=== PATIENT | female | born 1970 | race Caucasian/White ===

== ENCOUNTER 2021-02-01 16:11 | Outpatient (REF) | payer OTHER, SELFPAY ==
[2021-02-01 22:18] LABS: Calculated LDL 189 mg/dL (<100); Cholesterol 260 mg/dL (<200); HDL Cholesterol 54 mg/dL (40-60); Triglyceride 87 mg/dL (<150)
== END 2021-02-01 16:12 | disposition home or self-care (01) ==
LOC: NCHCN 16:11
PROVIDERS: Visit Provider Nurse Practitioner Community Health
DX: E78.2 Mixed hyperlipidemia (principal)
CPT/HCPCS: 80061

== ENCOUNTER 2021-08-09 18:24 | Outpatient (REF) | payer OTHER, SELFPAY ==
[2021-08-09 21:49] LABS: Absolute Basophil Count 0.04 10^3/uL (0.0-0.2); Absolute Eosinophil Count 0.06 10^3/uL (0.0-0.7); Absolute Lymphocyte Count 1.79 10^3/uL (1.2-3.4); Absolute Monocyte Count 0.29 10^3/uL (0.1-0.8); Absolute Neutrophil Count 2.25 10^3/uL (1.2-6.7); Basophils % 0.9; Eosinophils % 1.4; HCT 40.6 % (36.0-46.0); HGB 13.4 g/dL (11.2-15.7); Lymphocytes % 40.4; MCH 29.8 pg (27.0-33.0); MCV 90.2 fL (80-95); MPV 12.5 fL (8.0-11.0); Monocytes % 6.5; Neutrophils % 50.8; Nucleated RBC 0 %; Platelet Count 224 10^3/uL (130-400); RDW 11.8 % (11.7-14.6); WBC 4.43 10^3/uL (4.4-10.8)
[2021-08-09 22:04] LABS: ALT 22 U/L (14-59); AST 12 U/L (15-37); Albumin 3.8 g/dL (3.4-5.0); Alkaline Phosphatase 51 U/L (46-116); Anion Gap 7.6 mmol/L (3-11); BUN 9 mg/dL (7-18); Bilirubin, Total 0.4 mg/dL (0.2-1.0); CO2 27.4 mmol/L (21.0-32.0); CREATININE 0.6 mg/dL (0.55-1.02); Calcium 8.4 mg/dL (8.5-10.1); Chloride 105 mmol/L (98-107); Glucose 106 mg/dL (74-106); Sodium 140 mmol/L (136-145); Total Protein 6.9 g/dL (6.4-8.2)
== END 2021-08-09 18:25 | disposition home or self-care (01) ==
LOC: LBN 18:24
DX: G35 Multiple sclerosis (principal)
CPT/HCPCS: 80053; 85025

== ENCOUNTER 2021-11-09 16:40 | Outpatient (REF) | payer OTHER, SELFPAY ==
[2021-11-09 20:43] LABS: Abs Immature Grans 0.01 10^3/uL (0.0-0.06); Absolute Basophil Count 0.06 10^3/uL (0.0-0.2); Absolute Eosinophil Count 0.08 10^3/uL (0.0-0.7); Absolute Monocyte Count 0.32 10^3/uL (0.1-0.8); Absolute Neutrophil Count 2.35 10^3/uL (1.2-6.7); Basophils % 1.2; Eosinophils % 1.7; HCT 40.3 % (36.0-46.0); HGB 13.7 g/dL (11.2-15.7); Immature Grans % 0.2; Lymphocytes % 41.5; MCH 30.4 pg (27.0-33.0); MCV 90 fL (80-95); MPV 11.8 fL (8.0-11.0); Monocytes % 6.6; Neutrophils % 48.8; Platelet Count 213 10^3/uL (130-400); RDW 11.8 % (11.7-14.6); RDW-SD 38.5 fL; WBC 4.82 10^3/uL (4.4-10.8)
[2021-11-09 20:59] LABS: Hemoglobin A1C 5.6 % (<5.7)
[2021-11-09 21:00] LABS: ALT 19 U/L (14-59); AST 18 U/L (15-37); Albumin 3.8 g/dL (3.4-5.0); Alkaline Phosphatase 47 U/L (46-116); Anion Gap 3.2 mmol/L (3-11); BUN 9 mg/dL (7-18); Bilirubin, Total 0.3 mg/dL (0.2-1.0); CO2 33.8 mmol/L (21.0-32.0); CREATININE 0.5 mg/dL (0.55-1.02); Calcium 8.7 mg/dL (8.5-10.1); Calculated LDL 156 mg/dL (<100); Chloride 102 mmol/L (98-107); Cholesterol 236 mg/dL (<200); Glucose 107 mg/dL (74-106); HDL Cholesterol 57 mg/dL (40-60); Sodium 139 mmol/L (136-145); Total Protein 7.1 g/dL (6.4-8.2); Triglyceride 118 mg/dL (<150)
== END 2021-11-09 16:41 | disposition home or self-care (01) ==
LOC: NCHCN 16:40
PROVIDERS: Visit Provider Nurse Practitioner Family
DX: E78.2 Mixed hyperlipidemia (principal); G35 Multiple sclerosis; R79.89 Other specified abnormal findings of blood chemistry
CPT/HCPCS: 80053; 80061; 83036; 85025

== ENCOUNTER 2022-11-30 14:47 | Outpatient (REF) | payer OTHER, SELFPAY ==
--- NOTE | 2022-11-30 13:30 | PAPFT_PTH ---
PATIENT: Laurel Kirkland LOC: [facility] U#:[id number] AGE/SX: 52/F ROOM: RE11/30/[address]: Valeri Suarez : 1970 BED: DIS: 11/30/2022 SPEC #: [id number] RECD: 12/03/22 12:46 STATUS: SALOME REReal #: [id number] JOSE: 11/30/22 13:[address]: Valeri Suarez DEPT: [facility] Cytology RECD BY: Karen Lomax Tissues: 1 - CX/ENDOCX FOR PAP SMEARS Procedures: PAP THIN PREP/[facility] Screening HPV DNA PROBE Comments: [id number]
== END 2022-11-30 14:48 | disposition home or self-care (01) ==
LOC: LBN 14:47
PROVIDERS: Visit Provider Family Medicine
DX: Z12.4 Encounter for screening for malignant neoplasm of cervix (principal); Z11.51 Encounter for screening for human papillomavirus (HPV)
CPT/HCPCS: 88142; 87624

== ENCOUNTER 2024-11-25 14:14 | Outpatient (REF) | payer OTHER, SELFPAY ==
[2024-11-25 22:34] LABS: Abs Immature Grans 0.03 10^3/uL (0.0-0.06); HCT 43.6 % (36.0-46.0); HGB 14.6 g/dL (11.2-15.7); Immature Grans % 0.6 %; MCH 30.7 pg (27.0-33.0); MCHC 33.5 % (32.0-36.0); MCV 92 fL (80-95); MPV 10.8 fL (8.0-11.0); Platelet Count 290 10^3/uL (130-400); RBC 4.75 10^6/uL (3.93-5.22); RDW 11.8 % (11.7-14.6); RDW-SD 39.8 fL; WBC 5.25 10^3/uL (4.4-10.8)
[2024-11-25 23:19] LABS: ALT 29 U/L (14-59); AST 17 U/L (15-37); Albumin 4.3 g/dL (3.4-5.0); Alkaline Phosphatase 66 U/L (46-116); Anion Gap 6.9 mmol/L (3-11); BUN 10 mg/dL (7-18); Bilirubin, Total 0.4 mg/dL (0.2-1.0); CO2 33.1 mmol/L (21.0-32.0); Calcium 9.5 mg/dL (8.5-10.1); Chloride 101 mmol/L (98-107); Estimated GFR 105.28 (mL/min/1.73m2); Glucose 116 mg/dL (74-106); Potassium 4.2 mmol/L (3.5-5.1); Sodium 141 mmol/L (136-145); TSH 0.61 uIU/mL (0.36-3.74); Total Protein 7.6 g/dL (6.4-8.2); Vitamin D 25 Total 88 ng/mL (30-100)
== END 2024-11-25 14:15 | disposition home or self-care (01) ==
LOC: NCHCN 14:14
PROVIDERS: PCP Family Medicine; Visit Provider Family Medicine
DX: R63.4 Abnormal weight loss (principal)
CPT/HCPCS: 80053; 82306; 84439; 84443; 85025